=== PATIENT | male | born 1975 | race Caucasian/White ===

== ENCOUNTER 2021-02-11 22:07 | Inpatient (IN) ==
[2021-02-11] MEDS ORDERED: dexAMETHasone**PF** 10 MG/ML VIAL IV ONE (22:29)
[2021-02-11] MEDS ORDERED: ALBUT/IPRATROP 3MG/0.5MG NEB 3 ML VIAL NEB ONE (22:29)
[2021-02-11] MEDS ORDERED: SODIUM CHLORIDE 0.9% 1000ML 1,000 ML IV SCH (22:30)
--- NOTE | 2021-02-11 22:40 | Emergency Department Note ---
History of Present Illness General Chief complaint: Shortness of Breath/Dyspnea Stated complaint: HAVING A HARD TIME BREATHING,COUGHING Time Seen by Provider: 02/11/21 22:22 History of Present Illness This is a 45-year-old male presenting to the emergency department for evaluation of shortness of breath symptoms. The patient is not able to breathe and has a nonproductive dry cough. He evidently went to [place] about a week ago for a family member, and believes this is where he was exposed to COVID-19. He did not at home Covid test 5 days ago that was POSITIVE. The patient does have a history of asthma and does not follow with a primary care physician. The patient did get an albuterol inhaler which has not helped his symptoms. He rates his overall discomfort a 9/10. He is not vaccinated against COVID-19. Home Medications Medication Instructions Recorded Confirmed Type Otc Inhaler 1 puff INHALATION DIRECTED PRN 02/11/21 02/11/21 History Allergies Allergy/AdvReac Type Severity Reaction Status Date / Time Tetanus Vaccines and Toxoid AdvReac Intermediate FELT LIKE Verified 02/11/21 23:07 WIPE LASH, NECK VERY STIFF ENVIRONMENTAL Allergy Intermediate CONGESTION Uncoded 02/11/21 23:07 Past Med/Surg History Medical History (Updated 02/12/21 @ 05:37 by Migel Garcia PA-C) Asthma Surgical History (Updated 02/11/21 @ 22:37 by Migel Garcia PA-C) No significant past surgical history Social History Smoking Status: Never smoker Feels Safe at Home: Yes Review of Systems A total of 10 systems reviewed and were otherwise negative Physical Exam Vital Signs Vital Signs - 24 hr 02/11/21 22:10 02/11/21 22:12 02/11/21 22:29 Temperature 37.9 C H Temperature Source Temporal Artery Scan Pulse Rate 92 H 82 Pulse Rate [Right Radial] Respiratory Rate 20 60 H Respiratory Effort / Characteristics Non-Labored Spontaneous Respiratory Depth Normal Respiratory Pattern Regular Blood Pressure 104/68 Blood Pressure Mean 80 Pulse Oximetry 83 L 92 Oxygen Delivery Method Nasal Cannula Room Air Nasal Cannula Oxygen Flow Rate 4 4 Sepsis Recent Fever Within 48 Hours No Sepsis New/Unexplained Change in Mental Status No Sepsis Action Taken by Nursing No Action Required 02/11/21 22:31 02/11/21 22:45 02/11/21 23:00 Temperature Temperature Source Pulse Rate 91 H Pulse Rate [Right Radial] 78 Respiratory Rate 22 24 Respiratory Effort / Characteristics Spontaneous Respiratory Depth Respiratory Pattern Blood Pressure 144/77 H Blood Pressure Mean 99 Pulse Oximetry 93 97 Oxygen Delivery Method Nasal Cannula Nasal Cannula Nasal Cannula Oxygen Flow Rate 4 4 4 Sepsis Recent Fever Within 48 Hours Sepsis New/Unexplained Change in Mental Status Sepsis Action Taken by Nursing 02/11/21 23:30 02/12/21 00:00 02/12/21 00:30 Temperature Temperature Source Pulse Rate 111 H 121 H 114 H Pulse Rate [Right Radial] Respiratory Rate 20 20 21 Respiratory Effort / Characteristics Respiratory Depth Respiratory Pattern Blood Pressure 135/68 131/64 128/68 Blood Pressure Mean 90 86 88 Pulse Oximetry 97 95 95 Oxygen Delivery Method Nasal Cannula Nasal Cannula Nasal Cannula Oxygen Flow Rate 4 4 4 Sepsis Recent Fever Within 48 Hours Sepsis New/Unexplained Change in Mental Status Sepsis Action Taken by Nursing 02/12/21 00:46 02/12/21 01:30 EST 02/12/21 02:00 Temperature Temperature Source Pulse Rate 110 H 88 90 Pulse Rate [Right Radial] Respiratory Rate 21 23 20 Respiratory Effort / Characteristics Respiratory Depth Respiratory Pattern Blood Pressure 127/70 114/58 L 114/54 L Blood Pressure Mean 89 76 74 Pulse Oximetry 93 95 92 Oxygen Delivery Method Nasal Cannula Nasal Cannula Nasal Cannula Oxygen Flow Rate 4 4 4 Sepsis Recent Fever Within 48 Hours Sepsis New/Unexplained Change in Mental Status Sepsis Action Taken by Nursing VITALS: Vitals are noted on the nurse's note and reviewed by myself. Vital signs with hypoxia consistent with his O2 saturation of 83%. GENERAL: Well-developed, well-nourished, white male who appears in moderate respiratory distress. He is answering questions in short sentences. HEAD: Normocephalic atraumatic. HEART: Regular rate and rhythm without murmurs gallops or rubs. LUNGS: Coarse breath sounds throughout with scattered wheezing and rhonchi ABDOMEN: Positive normal bowel sounds x 4. Soft, nontender, without masses or organomegaly. No guarding or rebound tenderness. MUSCULOSKELETAL: No muscle atrophy, erythema, or edema noted. Full range of motion in all extremities. NEURO: Patient was alert and oriented to person place and time. CN II through XII grossly intact. Course Administered Medications Discontinued Medications Acetaminophen (Acetaminophen 325 Mg Tab) 650 mg PO NOW STA Stop: 02/12/21 01:20 EST Last Admin: 02/12/21 01:39 EST Dose: 650 mg Documented by: [id number] Albuterol (Albut/Ipratrop 3mg/0.5mg Neb 3 Ml Vial) 12 ml NEB ONE ONE Stop: 02/11/21 22:30 Last Admin: 02/11/21 22:44 Dose: 12 ml Documented by: [id number] Dexamethasone Sodium Phosphate (DexamethasonePf 10 Mg/Ml Vial) 10 mg IV NOW ONE Stop: 02/11/21 22:30 Last Admin: 02/11/21 22:41 Dose: 10 mg Documented by: [id number] Sodium Chloride (Nss 1000ml) 1,000 mls @ 999 mls/hr IV .Q1H1M ZACH Stop: 02/11/21 23:30 Last Infusion: 02/12/21 00:49 Dose: 0 mls/hr Documented by: [id number] Admin: 02/11/21 22:40 Dose: 999 mls/hr Documented by: [id number] Magnesium Sulfate/Dextrose (Magnesium Sulfate / D5w) 1 gm in 100 mls @ 50 mls/hr IV ONE ONE Stop: 02/12/21 03:24 Last Infusion: 02/12/21 02:55 Dose: 0 mls/hr Documented by: [id number] Admin: 02/12/21 01:41 EST Dose: 50 mls/hr Documented by: [id number] Remdesivir 200 mg/ Sodium (Chloride) 250 mls @ 125 mls/hr IV NOW STA; Protocol Stop: 02/12/21 04:44 Last Admin: 02/12/21 03:25 Dose: 125 mls/hr Documented by: [id number] Ioversol (Optiray 320 125ml) 120 ml IV ONCE ONE Stop: 02/12/21 00:49 Last Admin: 02/12/21 00:49 Dose: 120 ml Documented by: [id number] Potassium Chloride (Potassium Chloride Crtab 20 Meq Tabcr) 40 meq PO NOW STA Stop: 02/12/21 01:21 EST Last Admin: 02/12/21 01:39 EST Dose: 40 meq Documented by: [id number] Medical Decision Making Differential Diagnosis Differential diagnosis includes, but is not limited to: COVID-19, myocardial infarction, dysrhythmia, pericarditis, pneumothorax, aortic aneurysm/dissection, DVT/PE, anxiety, GERD, PUD, electrolyte imbalance, thyroid disorder, pneumonia, bronchitis, pancreatitis, and others Laboratory Data Result diagrams: 02/11/21 22:39 02/11/21 22:39 Lab Results 02/11/21 02/11/21 02/11/21 Range/Units 22:39 22:39 22:39 WBC 8.06 (4.8-10.8) K/uL RBC 5.15 (4.7-6.1) M/uL Hgb 15.3 (14.0-18.0) g/dL Hct 44.9 (42-52) % MCV 87.2 (80-100) fL MCH 29.7 (25-34) pg MCHC 34.1 (32-36) g/dL RDW Std Deviation 41.5 (36.4-46.3) fL RDW Coeff of Topher 13.0 (11.5-14.5) % Plt Count 332 (130-400) K/uL MPV 9.0 (7.4-10.4) fL Immature Gran % (Auto) 1.0 % Neut % (Auto) 78.8 % Lymph % (Auto) 9.8 % [place] % (Auto) 10.2 % Eos % (Auto) 0.1 % Baso % (Auto) 0.1 % Neut # (Auto) 6.35 (1.4-6.5) K/uL Lymph # (Auto) 0.79 L (1.2-3.4) K/uL [place] # (Auto) 0.82 H (0.11-0.59) K/uL Eos # (Auto) 0.01 (0-0.5) K/uL Baso # (Auto) 0.01 (0-0.2) K/uL Immature Gran # (Auto) 0.08 H (0.00-0.02) K/uL VBG pH (7.36-7.41) VBG pCO2 (38-50) mmHg VBG pO2 mmHg VBG HCO3 mmol/L VBG O2 Saturation % VBG Base Excess mEq/L Barometric Pressure mm/Hg Sodium 135 L (136-145) mmol/L Potassium 3.5 (3.5-5.1) mmol/L Chloride 97 L (98-107) mmol/L Carbon Dioxide 29 (21-32) mmol/L Anion Gap 9.0 (3-11) BUN 13 (7-18) mg/dl Creatinine 0.96 (0.6-1.4) mg/dl Est Cr Clr Drug Dosing 93.0 ml/min Est GFR ( Amer) 109.4 ml/min Est GFR (Non-Af Amer) 94.4 ml/min BUN/Creatinine Ratio 13.7 (10-20) Glucose 134 H (70-99) mg/dl Lactate (0.4-2.0) mmol/L Calcium 8.7 (8.5-10.1) mg/dl Magnesium 2.7 H (1.8-2.4) mg/dl Total Bilirubin 0.6 (0.2-1) mg/dl AST 59 H (15-37) U/L ALT 81 H (12-78) U/L Alkaline Phosphatase 70 (45-117) U/L Troponin I < 0.015 (0-0.045) ng/ml Total Protein 7.6 (6.4-8.2) gm/dl Albumin 2.7 L (3.4-5.0) gm/dl Globulin 4.9 H (2.5-4.0) gm/dl Albumin/Globulin Ratio 0.6 L (0.9-2) Procalcitonin 0.05 (0-0.5) ng/ml COVID-19 Eval Order SARS-CoV-2 (PCR) (Negative) 02/11/21 02/11/21 02/11/21 Range/Units 22:46 22:46 22:46 WBC (4.8-10.8) K/uL RBC (4.7-6.1) M/uL Hgb (14.0-18.0) g/dL Hct (42-52) % MCV (80-100) fL MCH (25-34) pg MCHC (32-36) g/dL RDW Std Deviation (36.4-46.3) fL RDW Coeff of Topher (11.5-14.5) % Plt Count (130-400) K/uL MPV (7.4-10.4) fL Immature Gran % (Auto) % Neut % (Auto) % Lymph % (Auto) % [place] % (Auto) % Eos % (Auto) % Baso % (Auto) % Neut # (Auto) (1.4-6.5) K/uL Lymph # (Auto) (1.2-3.4) K/uL [place] # (Auto) (0.11-0.59) K/uL Eos # (Auto) (0-0.5) K/uL Baso # (Auto) (0-0.2) K/uL Immature Gran # (Auto) (0.00-0.02) K/uL VBG pH (7.36-7.41) VBG pCO2 (38-50) mmHg VBG pO2 mmHg VBG HCO3 mmol/L VBG O2 Saturation % VBG Base Excess mEq/L Barometric Pressure mm/Hg Sodium (136-145) mmol/L Potassium (3.5-5.1) mmol/L Chloride (98-107) mmol/L Carbon Dioxide (21-32) mmol/L Anion Gap (3-11) BUN (7-18) mg/dl Creatinine (0.6-1.4) mg/dl Est Cr Clr Drug Dosing ml/min Est GFR ( Amer) ml/min Est GFR (Non-Af Amer) ml/min BUN/Creatinine Ratio (10-20) Glucose (70-99) mg/dl Lactate 1.1 (0.4-2.0) mmol/L Calcium (8.5-10.1) mg/dl Magnesium (1.8-2.4) mg/dl Total Bilirubin (0.2-1) mg/dl AST (15-37) U/L ALT (12-78) U/L Alkaline Phosphatase (45-117) U/L Troponin I (0-0.045) ng/ml Total Protein (6.4-8.2) gm/dl Albumin (3.4-5.0) gm/dl Globulin (2.5-4.0) gm/dl Albumin/Globulin Ratio (0.9-2) Procalcitonin (0-0.5) ng/ml COVID-19 Eval Order Covid19 at [facility] SARS-CoV-2 (PCR) POSITIVE A* (Negative) 02/11/21 Range/Units 22:58 WBC (4.8-10.8) K/uL RBC (4.7-6.1) M/uL Hgb (14.0-18.0) g/dL Hct (42-52) % MCV (80-100) fL MCH (25-34) pg MCHC (32-36) g/dL RDW Std Deviation (36.4-46.3) fL RDW Coeff of Topher (11.5-14.5) % Plt Count (130-400) K/uL MPV (7.4-10.4) fL Immature Gran % (Auto) % Neut % (Auto) % Lymph % (Auto) % [place] % (Auto) % Eos % (Auto) % Baso % (Auto) % Neut # (Auto) (1.4-6.5) K/uL Lymph # (Auto) (1.2-3.4) K/uL [place] # (Auto) (0.11-0.59) K/uL Eos # (Auto) (0-0.5) K/uL Baso # (Auto) (0-0.2) K/uL Immature Gran # (Auto) (0.00-0.02) K/uL VBG pH 7.42 H (7.36-7.41) VBG pCO2 52 H (38-50) mmHg VBG pO2 21 mmHg VBG HCO3 33 mmol/L VBG O2 Saturation < 60.0 % VBG Base Excess 6.6 mEq/L Barometric Pressure 738.2 mm/Hg Sodium (136-145) mmol/L Potassium (3.5-5.1) mmol/L Chloride (98-107) mmol/L Carbon Dioxide (21-32) mmol/L Anion Gap (3-11) BUN (7-18) mg/dl Creatinine (0.6-1.4) mg/dl Est Cr Clr Drug Dosing ml/min Est GFR ( Amer) ml/min Est GFR (Non-Af Amer) ml/min BUN/Creatinine Ratio (10-20) Glucose (70-99) mg/dl Lactate (0.4-2.0) mmol/L Calcium (8.5-10.1) mg/dl Magnesium (1.8-2.4) mg/dl Total Bilirubin (0.2-1) mg/dl AST (15-37) U/L ALT (12-78) U/L Alkaline Phosphatase (45-117) U/L Troponin I (0-0.045) ng/ml Total Protein (6.4-8.2) gm/dl Albumin (3.4-5.0) gm/dl Globulin (2.5-4.0) gm/dl Albumin/Globulin Ratio (0.9-2) Procalcitonin (0-0.5) ng/ml COVID-19 Eval Order SARS-CoV-2 (PCR) (Negative) Imaging Data Radiologist's Impression: Preliminary Findings Only See Final Report For Complete Findings CTA CHEST: Bilateral multifocal peripheral airspace opacities most likely from an atypical respiratory infection and compatible with COVID-19. No evidence of an acute pulmonary embolus. Radiologist:Anthony Betancourt, ANNAhone:[phone] [facility] Narrative Physical exam and history were performed. Nursing notes, EMR, and Medication List were personally reviewed. Patient appears to have respiratory distress likely from COVID-19. The patient refuses to wear his mask. He was seen immediately upon arrival to the room as his presenting vital signs are quite concerning. IV access was established and labs were obtained. Blood cultures were gathered. He was sent to CT scan to rule out possible pulmonary emboli related to COVID-19. He was given a 1 hour DuoNeb and IV Decadron. The case was discussed with my attending. His O2 saturation did improve to 92% on 4 L nasal cannula. An order was placed for continuous cardiac monitoring. The monitor shows a rate of 90 with normal sinus rhythm. The patient's blood work is as above and was reviewed. He does not have a significantly elevated white blood cell count, gross anemia, bandemia, or significant electrolyte imbalance. Transaminases are not diagnostic. Troponin x1 is negative. Procalcitonin is normal. Lactic acid is normal with blood cultures pending. CT scan was performed and reviewed by myself and radiology. CT scan is consistent with multifocal pneumonia, likely from COVID-19. Overall the patient does not appear well for discharge home. The case was discussed with the on-call hospitalist, who agreed to evaluate the patient here in the ER. Please see their dictation for further patient course, plan, and disposition. The chart was completed utilizing [employer] Voice Recognition Software. Grammatical errors, random word insertions, pronoun errors, and incomplete sentences are an occasional consequence of this system due to software limitations, ambient noise, and hardware issues. Any formal questions or concerns about the content, text, or information contained within the body of this dictation should be directly addressed to the provider for clarification. . Impression & Plan Pneumonia due to 2019-nCoV, COVID-19, Dyspnea due to COVID-19 Discharge Plan Visit Data Chief Complaint: Shortness of Breath/Dyspnea Stated Complaint: HAVING A HARD TIME BREATHING,COUGHING ED Provider: Zaki Esparza ED Midlevel Provider: Migel Garcia Discharge Problem: Pneumonia due to 2019-nCoV, COVID-19, Dyspnea due to COVID-19 Discharge Instructions Interventions: ED Discharge Assessment Last Done: 02/12/21 05:07
[2021-02-11 22:59] LABS: Hematocrit (blood only) 44.9 % (42-52); Hemoglobin 15.3 g/dL (14.0-18.0); Mean Corpuscular Hemoglobin 29.7 pg (25-34); Mean Corpuscular Hgb Conc 34.1 g/dL (32-36); Mean Corpuscular Volume 87.2 fL (80-100); Platelet Count 332 K/uL (130-400); RDW Standard Deviation 41.5 fL (36.4-46.3); Red Blood Count 5.15 M/uL (4.7-6.1); White Blood Count 8.06 K/uL (4.8-10.8)
[2021-02-11 23:09] LABS: Base Excess VBG 6.6 mEq/L; HCO3 VBG 33 mmol/L; Oxygen Saturation VBG < 60.0 %; PCO2 VBG 52 mmHg (38-50); PO2 VBG 21 mmHg; pH VBG 7.42 (7.36-7.41)
[2021-02-11 23:20] LABS: Alanine Aminotransferase 81 U/L (12-78); Albumin Level 2.7 gm/dl (3.4-5.0); Aspartate Aminotransferase 59 U/L (15-37); BUN Creatinine Ratio 13.7 (10-20); Blood Urea Nitrogen 13 mg/dl (7-18); Calcium 8.7 mg/dl (8.5-10.1); Carbon Dioxide 29 mmol/L (21-32); Chloride 97 mmol/L (98-107); Est GFR (African American) 109.4 ml/min; Est GFR (Non-African American) 94.4 ml/min; Glucose 134 mg/dl (70-99); Potassium 3.5 mmol/L (3.5-5.1); Sodium 135 mmol/L (136-145)
[2021-02-11 23:25] LABS: Albumin Globulin Ratio 0.6 (0.9-2); Alkaline Phosphatase 70 U/L (45-117); Bilirubin,Total 0.6 mg/dl (0.2-1); Globulin 4.9 gm/dl (2.5-4.0); Total Protein 7.6 gm/dl (6.4-8.2); Troponin I < 0.015 ng/ml (0-0.045)
[2021-02-12 00:03] LABS: Basophils # (auto) 0.01 K/uL (0-0.2); Basophils % (auto) 0.1 %; Eosinophils # (auto) 0.01 K/uL (0-0.5); Eosinophils % (auto) 0.1 %; Immature Granulocytes # (auto) 0.08 K/uL (0.00-0.02); Lymphocytes # (auto) 0.79 K/uL (1.2-3.4); Lymphocytes % (auto) 9.8 %; Monocytes # (auto) 0.82 K/uL (0.11-0.59); Monocytes % (auto) 10.2 %; Neutrophils # (auto) 6.35 K/uL (1.4-6.5); Neutrophils % (auto) 78.8 %
[2021-02-12] MEDS ORDERED: OPTIRAY 320 125ml IV ONE (00:48)
[2021-02-12] MEDS ORDERED: ACETAMINOPHEN 325 MG TAB PO STA (01:19)
[2021-02-12] MEDS ORDERED: POTASSIUM CHLORIDE CRTAB 20 MEQ TABCR PO STA (01:20)
[2021-02-12] MEDS ORDERED: MAGNESIUM SULFATE / D5W 1 GM/100 ML BAG IV ONE (01:25)
[2021-02-12 01:59] LABS: Magnesium 2.7 mg/dl (1.8-2.4)
--- NOTE | 2021-02-12 02:40 | History & Physical Report ---
Date of Service February 12, 2021 Assessment & Plan (1) Acute hypoxemic respiratory failure: Plan: Secondary to severe COVID-19 pneumonia Abnormal LFTs without abdominal pain complaints Hyperglycemia rule out DM Medical telemetry Supplemental O2 Decadron and Remdesivir for severe COVID-19 pneumonia. Patient agreeable to trying first dose of Remdesivir. (Patient was counseled regarding potential adverse effects from Remdesivir therapy and provided with patient education sheet.) Pulmonary consult if without improvement. Follow LFTs, liver ultrasound if with progression Check hemoglobin A1c DVT prophylaxis per Lovenox subcu Full code Text document was generated using [employer] voice recognition software. It may contain grammatical or spelling errors. Kindly contact undersigned for clarification of any documentation item in question. History of Present Illness Chief Complaint: Shortness of breath, COVID-19 positive Primary Care Provider: NO PCP History obtained from patient and records. Medical history significant for bronchial asthma as per records. Last confinement 2009 under ENT service for left neck abscess status post drainage. Few days history of dry cough, worsening shortness of breath symptoms without chest pain. Symptoms different from asthma attack as per patient. Patient denies abdominal pain. Poor appetite at home. 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 Patient has not received COVID-19 vaccination. O2 sats upon arrival at the ER 80s on room air. Decadron, neb treatment given at the ER. Medical History as above Surgical History : Neck abscess drainage, hernia repair Family History : Asthma Personal/Social history : Non-smoker, occasional EtOH intake (last drink was 2 weeks ago as per patient), [employer] work Allergies Allergy/AdvReac Type Severity Reaction Status Date / Time Tetanus Vaccines and Toxoid AdvReac Intermediate FELT LIKE Verified 02/11/21 23:07 WIPE LASH, NECK VERY STIFF house dust AdvReac Mild Congested Verified 02/12/21 07:16 pollen extracts AdvReac Mild Congested Verified 02/12/21 07:16 Home Medications Medication Instructions Recorded Confirmed Type Devi Allergy 1 cap PO DAILY 02/11/21 02/12/21 History Ventolin PRN 02/12/21 History Past Med/Surg History Medical History (Updated 02/12/21 @ 07:16 by Luis Antonio Darnell MD) Asthma Surgical History (Updated 02/11/21 @ 22:37 by Migel Garcia PA-C) No significant past surgical history Social History Smoking Status: Never smoker Hx Alcohol Use: Yes Alcohol type: wine and hard liquor Hx Substance Use: No Preferred Language: Sudanese Cook Pickled Meat Required: No Beliefs That Will Affect Care: None Current Living Situation: Spouse and Family Current Living Situation Comment: and 1 child Other Information That Helps Us Care for You: No Feels Safe at Home: Yes Safety Concerns: Feels Safe At This Time Assistive Devices: Denture - Upper and Denture - Lower Review of Systems Review of Systems: As per HPI, all 10 systems reviewed, all other ROS negative Physical Exam Physical Exam: GENERAL: Comfortable, no respiratory distress SKIN: Normal color, warm HEENT: [place] palpebral conjunctivae, no ptosis, dry buccal mucosa, nasal cannula in place NECK : Supple, no tenderness CHEST : Decreased breath sounds, no tenderness HEART : RRR, no obvious murmurs ABDOMEN: Some distention, nontender EXTREMITIES : No LE swelling/tenderness, no other conspicuous deformities noted NEUROLOGIC : Coherent, no facial asymmetry, no other gross focality Results & Data Results & Data ([facility]) Vital Signs (Past 12 Hours) Vital Signs Temp Pulse Pulse Resp BP Pulse Ox 02/12/21 02:00 90 20 114/54 L 92 02/12/21 01:30 EST 88 23 114/58 L 95 02/12/21 00:46 110 H 21 127/70 93 02/12/21 00:30 114 H 21 128/68 95 02/12/21 00:00 121 H 20 131/64 95 02/11/21 23:30 111 H 20 135/68 97 02/11/21 23:00 91 H 24 144/77 H 97 02/11/21 22:45 78 22 93 02/11/21 22:29 82 60 H 92 02/11/21 22:12 37.9 C H 92 H 20 104/68 83 L Laboratory Results Laboratory Results WBC 8.06 K/uL (4.8-10.8) 02/11/21 22:39 RBC 5.15 M/uL (4.7-6.1) 02/11/21 22:39 Hgb 15.3 g/dL (14.0-18.0) 02/11/21 22:39 Hct 44.9 % (42-52) 02/11/21 22:39 MCV 87.2 fL (80-100) 02/11/21 22:39 MCH 29.7 pg (25-34) 02/11/21 22:39 MCHC 34.1 g/dL (32-36) 02/11/21 22:39 RDW Std Deviation 41.5 fL (36.4-46.3) 02/11/21 22:39 RDW Coeff of Topher 13.0 % (11.5-14.5) 02/11/21 22:39 Plt Count 332 K/uL (130-400) 02/11/21 22:39 MPV 9.0 fL (7.4-10.4) 02/11/21 22:39 Immature Gran % (Auto) 1.0 % 02/11/21 22:39 Neut % (Auto) 78.8 % 02/11/21 22:39 Lymph % (Auto) 9.8 % 02/11/21 22:39 [place] % (Auto) 10.2 % 02/11/21 22:39 Eos % (Auto) 0.1 % 02/11/21 22:39 Baso % (Auto) 0.1 % 02/11/21 22:39 Neut # (Auto) 6.35 K/uL (1.4-6.5) 02/11/21 22:39 Lymph # (Auto) 0.79 K/uL (1.2-3.4) L 02/11/21 22:39 [place] # (Auto) 0.82 K/uL (0.11-0.59) H 02/11/21 22:39 Eos # (Auto) 0.01 K/uL (0-0.5) 02/11/21 22:39 Baso # (Auto) 0.01 K/uL (0-0.2) 02/11/21 22:39 Immature Gran # (Auto) 0.08 K/uL (0.00-0.02) H 02/11/21 22:39 VBG pH 7.42 (7.36-7.41) H 02/11/21 22:58 VBG pCO2 52 mmHg (38-50) H 02/11/21 22:58 VBG pO2 21 mmHg 02/11/21 22:58 VBG HCO3 33 mmol/L 02/11/21 22:58 VBG O2 Saturation < 60.0 % 02/11/21 22:58 VBG Base Excess 6.6 mEq/L 02/11/21 22:58 Barometric Pressure 738.2 mm/Hg 02/11/21 22:58 Sodium 135 mmol/L (136-145) L 02/11/21 22:39 Potassium 3.5 mmol/L (3.5-5.1) 02/11/21 22:39 Chloride 97 mmol/L (98-107) L 02/11/21 22:39 Carbon Dioxide 29 mmol/L (21-32) 02/11/21 22:39 Anion Gap 9.0 (3-11) 02/11/21 22:39 BUN 13 mg/dl (7-18) 02/11/21 22:39 Creatinine 0.96 mg/dl (0.6-1.4) 02/11/21 22:39 Est Cr Clr Drug Dosing 93.0 ml/min 02/11/21 22:39 Est GFR ( Amer) 109.4 ml/min 02/11/21 22:39 Est GFR (Non-Af Amer) 94.4 ml/min 02/11/21 22:39 BUN/Creatinine Ratio 13.7 (10-20) 02/11/21 22:39 Glucose 134 mg/dl (70-99) H 02/11/21 22:39 Lactate 1.1 mmol/L (0.4-2.0) 02/11/21 22:46 Calcium 8.7 mg/dl (8.5-10.1) 02/11/21 22:39 Magnesium 2.7 mg/dl (1.8-2.4) H 02/11/21 22:39 Total Bilirubin 0.6 mg/dl (0.2-1) 02/11/21 22:39 AST 59 U/L (15-37) H 02/11/21 22:39 ALT 81 U/L (12-78) H 02/11/21 22:39 Alkaline Phosphatase 70 U/L (45-117) 02/11/21 22:39 Troponin I < 0.015 ng/ml (0-0.045) 02/11/21 22:39 Total Protein 7.6 gm/dl (6.4-8.2) 02/11/21 22:39 Albumin 2.7 gm/dl (3.4-5.0) L 02/11/21 22:39 Globulin 4.9 gm/dl (2.5-4.0) H 02/11/21 22:39 Albumin/Globulin Ratio 0.6 (0.9-2) L 02/11/21 22:39 Procalcitonin 0.05 ng/ml (0-0.5) 02/11/21 22:39 COVID-19 Eval Order Covid19 at [facility] 02/11/21 22:46 SARS-CoV-2 (PCR) POSITIVE (Negative) A* 02/11/21 22:[address] chest initial read: Bilateral multifocal peripheral airspace opacities most likelyfroman atypical respiratoryinfection and compatible with COVID-19. No evidence of an acute pulmonaryembolus. EKG as per my interpretation rate 85, NSR, normal axis, no ischemia
[2021-02-12] MEDS ORDERED: SODIUM CHLORIDE 0.9% 10ML FLUSH IV SCH (02:45)
[2021-02-12] MEDS ORDERED: REMDESIVIR 200 MG in SODIUM CHLORIDE 0.9% 210 ML IV STA (02:45)
[2021-02-12] MEDS ORDERED: ACETAMINOPHEN 325 MG TAB PO PRN ×2 (05:30)
[2021-02-12] MEDS ORDERED: PROMETHAZINE HCL 12.5 MG in SODIUM CHLORIDE 0.9% 50 ML IV PRN (05:30)
[2021-02-12] MEDS ORDERED: LEVALBUTEROL TARTRATE 15 GM HFA.AER.AD INH PRN (05:30)
[2021-02-12 07:21] LABS: Hematocrit (blood only) 41.9 % (42-52); Mean Corpuscular Hemoglobin 29.2 pg (25-34); Mean Corpuscular Hgb Conc 33.4 g/dL (32-36); Mean Corpuscular Volume 87.5 fL (80-100); Platelet Count 339 K/uL (130-400); RDW Standard Deviation 41.8 fL (36.4-46.3); Red Blood Count 4.79 M/uL (4.7-6.1); White Blood Count 6.25 K/uL (4.8-10.8)
--- NOTE | 2021-02-12 07:41 | CT Scan Report ---
CT angio chest PE protocol CT DOSE: 279.60 mGy.cm HISTORY: 45 years-old Male with +Covid. SOB.. Acute shortness of breath. COVID Positive. TECHNIQUE: Multiple CTA images of the chest were obtained after the intravenous administration of 120 ml Optiray. Coronal and sagittal MIPS were obtained from the axial data set and were submitted for review. All measurements were obtained according to NASCET criteria. A dose lowering technique was u tilized adhering to the principles of ALARA. COMPARISON: Chest radiographs 07/05/2009 FINDINGS: CTA: The heart is normal in size. No pericardial effusion. No thoracic aortic aneurysm. Patent great vesse ls. Unremarkable pulmonary artery without pulmonary emboli. CT CHEST: Unremarkable thyroid. Mild mediastinal and hilar adenopathy with lymph nodes measuring up to 10 mm. T race pleural effusions. No pneumothorax. Moderate subpleural predominant groundglass and consolidativ e opacities are present within the multilobar multi segmental distribution. Dependent predominant bib asilar consolidation suggests atelectasis. No overt pulmonary edema. The central airways are patent. Mild wall thickening of the distal esophagus. Unremarkable soft tissues. No acute fracture. IMPRESSION: 1. No pulmonary emboli. 2. Moderate subpleural predominant groundglass and consolidative opacities compatible with viral pneu monia. 3. Mild reactive mediastinal and hilar adenopathy. 4. Trace pleural effusions. ACT 112: Negative or not required by law. The above report was generated using voice recognition software. It may contain grammatical, syntax o r spelling errors. Electronically signed by: Yayo Jordan M.D. 02/12/2021 7:40 AM
[2021-02-12 07:44] LABS: Basophils # (auto) 0.01 K/uL (0-0.2); Basophils % (auto) 0.2 %; Immature Granulocytes # (auto) 0.06 K/uL (0.00-0.02); Lymphocytes # (auto) 0.31 K/uL (1.2-3.4); Monocytes # (auto) 0.49 K/uL (0.11-0.59); Monocytes % (auto) 7.8 %; Neutrophils # (auto) 5.38 K/uL (1.4-6.5)
[2021-02-12 07:54] LABS: Albumin Globulin Ratio 0.5 (0.9-2); Albumin Level 2.3 gm/dl (3.4-5.0); BUN Creatinine Ratio 14.6 (10-20); Bilirubin,Total 0.4 mg/dl (0.2-1); Calcium 8.5 mg/dl (8.5-10.1); Creatinine Clr Calc Pharmacy 108.9 ml/min; Est GFR (African American) 122.9 ml/min; Globulin 4.3 gm/dl (2.5-4.0); Potassium 4.7 mmol/L (3.5-5.1); Total Protein 6.6 gm/dl (6.4-8.2)
[2021-02-12] MEDS ORDERED: PNEUMOCOCCAL POLYSACCHARIDES 25 MCG/0.5 ML VIAL/SYR IM ONE (08:00)
[2021-02-12] MEDS: ENOXAPARIN INJ 40 MG/0.4 ML SYR SQ SCH (08:46)
[2021-02-12] MEDS: dexAMETHasone 6 MG in SYRINGE 0 ML IV SCH (08:46)
[2021-02-12] MEDS: guaiFENesin 600 MG TABCR PO SCH ×2 (10:40→21:51)
--- NOTE | 2021-02-12 11:17 | Electrocardiogram Report ---
Test Reason : Blood Pressure : / mmHG Vent. Rate : 083 BPM Atrial Rate : 083 BPM P-R Int : 152 ms QRS Dur : 074 ms QT Int : 374 ms P-R-T Axes : 048 -17 026 degrees QTc Int : 439 ms Normal sinus rhythm Normal ECG No previous ECGs available Confirmed by Charli Chance ([id number]) on 02/12/2021 11:17:08 AM Referred By: REFERRED SELF Confirmed By:Charli Chance
--- NOTE | 2021-02-12 13:15 | Hospitalist Progress Note ---
Date of Service February 12, 2021 Assessment & Plan (1) Pneumonia due to 2019-nCoV: (2) Acute hypoxemic respiratory failure: Plan: 45-year-old gentleman with past medical history of asthma and allergy presented to our ED 02/11 with complaint of few days worsening of dry cough associated with worsening shortness of breath but no chest pain. Patient reports the symptoms different from his prior asthma attack. Patient found to be Covid positive in the ED. Patient not vaccinated. 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 Is being managed for the following #. Acute hypoxic respiratory failure #. 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 Continue with dexamethasone 01/12. Supplemental oxygen, wean as tolerated. #. History of asthma #. History of allergy Stable, as needed albuterol, home Devi. #. DVT prophylaxis Enoxaparin subcutaneous Full code Admission and Anticipated Discharge Date Admission Date: February 12, 2021 Subjective Patient was sitting up in bed, watching television, on 3 L nasal cannula oxygen, NAD. Patient denies any acute events overnight. Patient is eating and moving bowels okay. Patient denies any headache/dizziness/chest pain/palpitations/other review of symptoms. We will order a flutter valve and incentive spirometry for the patient. Patient advised and encouraged to use them and also prone as able. Physical Exam Physical Exam: GENERAL: Alert and oriented x3. NAD, on 3L. HEENT: No pallor, no icterus. Pupils equal, round and reactive to light. Oral mucosa moist. NECK: No JVD, no neck masses. HEART: S1 and S2 heard. Regular rate and rhythm. No murmur, no gallop. RESPIRATORY SYSTEM: Normal AP diameter. No accessory muscle use. No wheezing, no crackles. Decreased Breath sound ABDOMEN: Soft, bowel sounds present, nontender, no distention. CENTRAL NERVOUS SYSTEM: No facial droop. Speech is clear. Obeys simple commands. Moves extremities. EXTREMITIES: No edema, no erythema seen. Results & Data Results & Data ([facility]) Vital Signs (Past 12 Hours) Vital Signs Temp Pulse Pulse Resp BP BP Pulse Ox 02/12/21 10:45 36.8 C 61 18 95 02/12/21 08:00 36.7 C 65 18 109/75 97 02/12/21 07:00 64 02/12/21 06:03 73 02/12/21 05:35 36.8 C 68 18 116/74 95 02/12/21 04:30 62 24 123/60 93 02/12/21 03:30 67 20 106/57 L 92 02/12/21 03:00 69 22 120/74 94 02/12/21 02:00 90 20 114/54 L 92 02/12/21 01:30 EST 88 23 114/58 L 95
[2021-02-12] MEDS: FEXOFENADINE HCL 180 MG TAB PO SCH (16:11)
[2021-02-12] MEDS ORDERED: Nursing to Pharmacy Communication SCH (19:15)
[2021-02-13] MEDS ORDERED: CALCIUM CARBONATE 500 MG CHEWABLE TAB PO STA (03:42)
[2021-02-13 07:15] LABS: Estimated Average Glucose 140 mg/dl; Hemoglobin A1C 6.5 % (4.5-5.6)
[2021-02-13 08:37] LABS: BUN Creatinine Ratio 21.4 (10-20); Calcium 8.6 mg/dl (8.5-10.1); Creatinine Clr Calc Pharmacy 106.3 ml/min; Est GFR (African American) 121.7 ml/min; Magnesium 2.6 mg/dl (1.8-2.4); Potassium 4.6 mmol/L (3.5-5.1)
[2021-02-13 08:38] LABS: Phosphorus 3.4 mg/dl (2.5-4.9)
[2021-02-13] MEDS: dexAMETHasone 6 MG in SYRINGE 0 ML IV SCH (09:02)
[2021-02-13] MEDS: ENOXAPARIN INJ 40 MG/0.4 ML SYR SQ SCH (09:08)
[2021-02-13] MEDS: guaiFENesin 600 MG TABCR PO SCH ×2 (09:09→20:36)
[2021-02-13] MEDS: FEXOFENADINE HCL 180 MG TAB PO SCH (09:10)
[2021-02-13] MEDS ORDERED: PANTOprazole 40 MG TAB PO SCH (09:15)
[2021-02-13] MEDS ORDERED: CALCIUM CARBONATE 500 MG CHEWABLE TAB PO PRN (11:08)
--- NOTE | 2021-02-13 11:31 | Hospitalist Progress Note ---
Date of Service February 13, 2021 Assessment & Plan (1) Pneumonia due to 2019-nCoV: (2) Acute hypoxemic respiratory failure: Plan: 45-year-old gentleman with past medical history of asthma and allergy presented to our ED 02/11 with complaint of few days worsening of dry cough associated with worsening shortness of breath but no chest pain. Patient reports the symptoms different from his prior asthma attack. Patient found to be Covid positive in the ED. Patient not vaccinated. 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 Is being managed for the following #. Acute hypoxic respiratory failure #. 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 Continue with dexamethasone 01/12. Supplemental oxygen, wean as tolerated. #. Heartburn Likely indigestion secondary to steroid We will put him on PPI for the duration of steroid Tums as needed, patient reports symptoms improvement with Tums. #. History of asthma #. History of allergy Stable, as needed albuterol, home Devi. #. DVT prophylaxis Enoxaparin subcutaneous Full code Admission and Anticipated Discharge Date Admission Date: February 12, 2021 Subjective Patient was lying in bed on his side, worsening television, on 3 L nasal cannula oxygen, NAD. Patient denies any acute events overnight other than reflux symptoms he had. We will put him on pantoprazole for the duration of dexamethasone. Tums as needed. Patient is eating and moving bowels okay. Patient denies any headache/dizziness/chest pain/palpitations/other review of symptoms. Incentive spirometry not seen at the bedside, will make nursing staff aware. Patient advised to do incentive spirometry and flutter valve every hour when awake; prone position as able. Physical Exam Physical Exam: GENERAL: Alert and oriented x3. NAD, on 3L. HEENT: No pallor, no icterus. Pupils equal, round and reactive to light. Oral mucosa moist. NECK: No JVD, no neck masses. HEART: S1 and S2 heard. Regular rate and rhythm. No murmur, no gallop. RESPIRATORY SYSTEM: Normal AP diameter. No accessory muscle use. No wheezing, no crackles. Decreased Breath sound ABDOMEN: Soft, bowel sounds present, nontender, no distention. CENTRAL NERVOUS SYSTEM: No facial droop. Speech is clear. Obeys simple commands. Moves extremities. EXTREMITIES: No edema, no erythema seen. Results & Data Results & Data ([facility]) Vital Signs (Past 12 Hours) Vital Signs Temp Pulse Pulse Resp BP Pulse Ox 02/13/21 08:11 36.9 C 58 L 18 107/68 92 02/13/21 04:37 52 L 02/13/21 03:20 36.8 C 51 L 19 131/71 96
[2021-02-13] MEDS: PANTOprazole 40 MG TAB PO SCH (20:36)
[2021-02-14] MEDS: guaiFENesin 600 MG TABCR PO SCH ×2 (08:21→22:15)
[2021-02-14] MEDS: FEXOFENADINE HCL 180 MG TAB PO SCH (08:21)
[2021-02-14] MEDS: PANTOprazole 40 MG TAB PO SCH ×2 (08:22→22:15)
[2021-02-14] MEDS: dexAMETHasone 6 MG in SYRINGE 0 ML IV SCH (08:22)
[2021-02-14] MEDS: ENOXAPARIN INJ 40 MG/0.4 ML SYR SQ SCH (08:22)
--- NOTE | 2021-02-14 14:44 | Hospitalist Progress Note ---
Date of Service February 14, 2021 Assessment & Plan (1) Pneumonia due to 2019-nCoV: (2) Acute hypoxemic respiratory failure: Plan: 45-year-old gentleman with past medical history of asthma and allergy presented to our ED 02/11 with complaint of few days worsening of dry cough associated with worsening shortness of breath but no chest pain. Patient reports the symptoms different from his prior asthma attack. Patient found to be Covid positive in the ED. Patient not vaccinated. 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 Acute hypoxic respiratory failure #. 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 Continue with dexamethasone 01/12. Supplemental oxygen, wean as tolerated. #. Heartburn Likely indigestion secondary to steroid We will put him on PPI for the duration of steroid Tums as needed Patient reports symptoms improvement. #. History of asthma #. History of allergy Stable, as needed albuterol, home Devi. #. DVT prophylaxis Enoxaparin subcutaneous Full code Disposition: Patient does not have health insurance per rehabilitation caseworker, it will be more expensive for the patient to go on home oxygen, hence hopefully will get him on room air prior to discharge. Admission and Anticipated Discharge Date Admission Date: February 12, 2021 Subjective Patient was lying in bed on his side, watching television, on 3 L nasal cannula oxygen, NAD. Patient reports improvement in his reflux symptoms. Continue with PPI. Patient reports a 10-minute episode of shortness of breath during the night, did not call nursing staff for this. He sat down on the bed and it resolved on its own per patient. Patient encouraged/requested to call for help during such episodes. Patient is eating and moving bowels okay. Patient denies any headache/dizziness/chest pain/palpitations/other review of symptoms. Physical Exam Physical Exam: GENERAL: Alert and oriented x3. NAD, on 3L. HEENT: No pallor, no icterus. Pupils equal, round and reactive to light. Oral mucosa moist. NECK: No JVD, no neck masses. HEART: S1 and S2 heard. Regular rate and rhythm. No murmur, no gallop. RESPIRATORY SYSTEM: Normal AP diameter. No accessory muscle use. No wheezing, no crackles. Decreased Breath sound ABDOMEN: Soft, bowel sounds present, nontender, no distention. CENTRAL NERVOUS SYSTEM: No facial droop. Speech is clear. Obeys simple commands. Moves extremities. EXTREMITIES: No edema, no erythema seen. Results & Data Results & Data ([facility]) Vital Signs (Past 12 Hours) Vital Signs Temp Pulse Pulse Resp BP Pulse Ox 02/14/21 11:41 37.1 C 54 L 18 112/69 95 02/14/21 09:13 36.9 C 58 L 14 91/54 L 92 02/14/21 07:27 37 L 02/14/21 07:25 70 02/14/21 03:17 36.9 C 49 L 18 108/47 L 93
[2021-02-15] MEDS: guaiFENesin 600 MG TABCR PO SCH ×2 (08:12→20:57)
[2021-02-15] MEDS: FEXOFENADINE HCL 180 MG TAB PO SCH (08:12)
[2021-02-15] MEDS: PANTOprazole 40 MG TAB PO SCH ×2 (08:12→20:57)
[2021-02-15] MEDS: ENOXAPARIN INJ 40 MG/0.4 ML SYR SQ SCH (08:13)
[2021-02-15] MEDS: dexAMETHasone 6 MG in SYRINGE 0 ML IV SCH (08:13)
--- NOTE | 2021-02-15 13:34 | Hospitalist Progress Note ---
Date of Service February 15, 2021 Assessment & Plan (1) Pneumonia due to 2019-nCoV: Plan: #. Acute hypoxic respiratory failure #. 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 Continue with dexamethasone 01/12. Supplemental oxygen, wean as tolerated. Has been requiring up to 3 L of oxygen to maintain saturation Cough suppressant as needed We will give 40-minute of Lasix today (2) Acute hypoxemic respiratory failure: Plan: Minimally worse today Plan: 45-year-old gentleman with past medical history of asthma and allergy presented to our ED 02/11 with complaint of few days worsening of dry cough associated with worsening shortness of breath but no chest pain. Patient reports the symptoms different from his prior asthma attack. Patient found to be Covid positive in the ED. Patient not vaccinated. 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 Is being managed for the following #. Heartburn Likely indigestion secondary to steroid We will put him on PPI for the duration of steroid Tums as needed Patient reports symptoms improvement. #. History of asthma #. History of allergy Stable, as needed albuterol, home Devi. #. DVT prophylaxis Enoxaparin subcutaneous Full code Disposition: Patient does not have health insurance per binder caser, it will be more expensive for the patient to go on home oxygen, hence hopefully will get him on room air prior to discharge. Admission and Anticipated Discharge Date Admission Date: February 12, 2021 Subjective 02/15/2021 The patient was seen and examined in medical telemetry unit and in the Covid room He has been feeling a little worse today Requiring up to 3 L of oxygen to maintain saturation Has cough and minimal shortness of breath at rest Review of Systems Review of Systems: All systems reviewed and are unremarkable except as noted below Respiratory: No respiratory distress at rest Physical Exam Physical Exam: Lying in bed with minimal shortness of breath but anxious Constitutional: well developed, well nourished and average body habitus; not ill appearing Eyes: PERRL, conjunctivae normal, anicteric sclerae ENMT: external ear and nose normal, oropharynx normal Neck: trachea midline, no thyromegaly Respiratory: + respiratory distress (Minimal distress at rest), + cough and + tachypneic Auscultation: + diminished lung sounds and + crackles (At the bases) Cardiovascular: Rate/Rhythm: regular rate and regular rhythm; not tachycardic Heart Sounds: normal S1 and normal S2; no murmur Extremities: no edema Gastrointestinal (Abdomen): Inspection/Auscultation: normal bowel sounds; abdomen not distended Percussion/Palpation: abdomen soft; abdomen nontender Musculoskeletal: No acute arthritis in any joint Neurologic: Alert, awake and oriented x3. No focal sensory and motor deficit appreciated Psychiatric: A+Ox3, euthymic affect Lymphatic: no cervical or axillary lymphadenopathy Results & Data Results & Data ([facility]) Vital Signs (Past 12 Hours) Vital Signs Temp Pulse Pulse Resp BP Pulse Ox 02/15/21 08:00 36.6 C 46 L 16 105/67 91 02/15/21 06:58 46 L 02/15/21 03:10 36.8 C 44 L 114/65 91 02/15/21 03:05 85 L Diagnostic Findings Current Inpatient Medications Acetaminophen (Acetaminophen 325 Mg Tab) 650 mg PO Q4H PRN PRN Reason: Pain or Fever Stop: 03/14/21 05:29 Calcium Carbonate (Calcium Carbonate 500 Mg Chewable Tab) 500 mg PO Q12H PRN PRN Reason: Indigestion Stop: 03/15/21 11:07 Last Admin: 02/13/21 12:16 Dose: 500 mg Documented by: Nystatin 30 ml/ Dexamethasone 3.75 mg/ Diphenhydramine HCl 300 mg/ Sucrose 45 ml/Microcrystalline Cellulose 45 ml/ BARCODE IDENTIFIER 1 ea 0 ml PO Q8H ZACH Stop: 03/14/21 16:59 Last Admin: 02/15/21 08:13 Dose: 5 ml Documented by: Enoxaparin Sodium (Enoxaparin Inj 40 Mg/0.4 Ml Syr) 40 mg SQ QAM ZACH Stop: 03/14/21 08:59 Last Admin: 02/15/21 08:13 Dose: 40 mg Documented by: Fexofenadine HCl (Fexofenadine Hcl 180 Mg Tab) 180 mg PO DAILY [facility] Stop: 03/14/21 13:29 Last Admin: 02/15/21 08:12 Dose: 180 mg Documented by: Guaifenesin (Guaifenesin 600 Mg Tabcr) 600 mg PO Q12 ZACH Stop: 03/14/21 08:59 Last Admin: 02/15/21 08:12 Dose: 600 mg Documented by: Promethazine HCl 12.5 mg/ (Sodium Chloride) 50.5 mls @ 202 mls/hr IV Q6H PRN PRN Reason: Nausea And Vomiting Stop: 03/14/21 05:29 Dexamethasone 6 mg/ Syringe 1.5 mls @ 1 mls/min IV DAILY ZACH Stop: 03/14/21 08:59 Last Admin: 02/15/21 08:13 Dose: 1 mls/min Documented by: Levalbuterol HCl (Levalbuterol Tartrate 15 Gm Hfa.Aer.Ad) 2 puffs INH Q4R PRN PRN Reason: sob/wheeze Stop: 03/14/21 05:29 Pantoprazole Sodium (Pantoprazole 40 Mg Tab) 40 mg PO BID ZACH Stop: 02/17/21 20:59 Last Admin: 02/15/21 08:12 Dose: 40 mg Documented by:
[2021-02-15] MEDS ORDERED: FUROSEMIDE 40 MG/4 ML VIAL IV ONE (13:45)
[2021-02-16] MEDS: guaiFENesin 600 MG TABCR PO SCH ×2 (07:59→20:04)
[2021-02-16] MEDS: dexAMETHasone 6 MG in SYRINGE 0 ML IV SCH (08:00)
[2021-02-16] MEDS: FEXOFENADINE HCL 180 MG TAB PO SCH (08:00)
[2021-02-16] MEDS: PANTOprazole 40 MG TAB PO SCH ×2 (08:00→20:04)
[2021-02-16] MEDS: ENOXAPARIN INJ 40 MG/0.4 ML SYR SQ SCH (08:01)
[2021-02-16 08:05] LABS: BUN Creatinine Ratio 19.7 (10-20); Calcium 8.7 mg/dl (8.5-10.1); Creatinine Clr Calc Pharmacy 101.5 ml/min; Est GFR (African American) 119.4 ml/min; Potassium 4.1 mmol/L (3.5-5.1)
--- NOTE | 2021-02-16 17:00 | Hospitalist Progress Note ---
Date of Service February 16, 2021 Assessment & Plan (1) Pneumonia due to 2019-nCoV: Plan: #. Acute hypoxic respiratory failure #. 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 Continue with dexamethasone 01/12. Supplemental oxygen, wean as tolerated. Has been requiring up to 3 L of oxygen to maintain saturation Cough suppressant as needed Feels a little better but not yet ready to be discharged (2) Acute hypoxemic respiratory failure: Plan: Minimally worse today We will get an x-ray Plan: 45-year-old gentleman with past medical history of asthma and allergy presented to our ED 02/11 with complaint of few days worsening of dry cough associated with worsening shortness of breath but no chest pain. Patient reports the symptoms different from his prior asthma attack. Patient found to be Covid positive in the ED. Patient not vaccinated. 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 Is being managed for the following #. Heartburn Likely indigestion secondary to steroid We will put him on PPI for the duration of steroid Tums as needed Patient reports symptoms improvement. #. History of asthma #. History of allergy Stable, as needed albuterol, home Devi. #. DVT prophylaxis Enoxaparin subcutaneous Full code Disposition: Patient does not have health insurance per manager animal, it will be more expensive for the patient to go on home oxygen, hence hopefully will get him on room air prior to discharge. Admission and Anticipated Discharge Date Admission Date: February 12, 2021 Subjective 02/15/2021 The patient was seen and examined in medical telemetry unit and in the Covid room He has been feeling a little worse today Requiring up to 3 L of oxygen to maintain saturation Has cough and minimal shortness of breath at rest 02/16/2021 The patient was seen and examined in medical telemetry unit and in the Covid room He has been feeling a little better but he still requires about 3 L of oxygen to maintain saturation Review of Systems Review of Systems: All systems reviewed and are unremarkable except as noted below Respiratory: No respiratory distress at rest Physical Exam Physical Exam: Lying in bed with minimal shortness of breath but anxious Constitutional: well developed, well nourished and average body habitus; not ill appearing Eyes: PERRL, conjunctivae normal, anicteric sclerae ENMT: external ear and nose normal, oropharynx normal Neck: trachea midline, no thyromegaly Respiratory: + respiratory distress (Minimal distress at rest), + cough and + tachypneic Auscultation: + diminished lung sounds and + crackles (At the bases) Cardiovascular: Rate/Rhythm: regular rate and regular rhythm; not tachycardic Heart Sounds: normal S1 and normal S2; no murmur Extremities: no edema Gastrointestinal (Abdomen): Inspection/Auscultation: normal bowel sounds; abdomen not distended Percussion/Palpation: abdomen soft; abdomen nontender Musculoskeletal: No acute arthritis in any joint Neurologic: Alert, awake and oriented x3 Psychiatric: A+Ox3, euthymic affect Lymphatic: no cervical or axillary lymphadenopathy Results & Data Results & Data ([facility]) Vital Signs (Past 12 Hours) Vital Signs Temp Pulse Pulse Resp BP Pulse Ox 02/16/21 16:12 65 02/16/21 16:00 36.9 C 65 18 105/70 97 02/16/21 12:08 36.6 C 94 H 17 106/65 94 02/16/21 08:00 36.7 C 52 L 94/54 L 95 02/16/21 07:38 49 L Laboratory Results [facility] 02/16/21 06:56 Sodium 138 Potassium 4.1 Chloride 99 Carbon Dioxide 33 H BUN 17 Creatinine 0.88 Glucose 93 Calcium 8.7 Medications Administered Current Inpatient Medications Acetaminophen (Acetaminophen 325 Mg Tab) 650 mg PO Q4H PRN PRN Reason: Pain or Fever Stop: 03/14/21 05:29 Calcium Carbonate (Calcium Carbonate 500 Mg Chewable Tab) 500 mg PO Q12H PRN PRN Reason: Indigestion Stop: 03/15/21 11:07 Last Admin: 02/13/21 12:16 Dose: 500 mg Documented by: Nystatin 30 ml/ Dexamethasone 3.75 mg/ Diphenhydramine HCl 300 mg/ Sucrose 45 ml/Microcrystalline Cellulose 45 ml/ BARCODE IDENTIFIER 1 ea 0 ml PO Q8H ZACH Stop: 03/14/21 16:59 Last Admin: 02/16/21 08:00 Dose: 5 ml Documented by: Enoxaparin Sodium (Enoxaparin Inj 40 Mg/0.4 Ml Syr) 40 mg SQ QAM [facility] Stop: 03/14/21 08:59 Last Admin: 02/16/21 08:01 Dose: 40 mg Documented by: Fexofenadine HCl (Fexofenadine Hcl 180 Mg Tab) 180 mg PO DAILY [facility] Stop: 03/14/21 13:29 Last Admin: 02/16/21 08:00 Dose: 180 mg Documented by: Guaifenesin (Guaifenesin 600 Mg Tabcr) 600 mg PO Q12 ZACH Stop: 03/14/21 08:59 Last Admin: 02/16/21 07:59 Dose: 600 mg Documented by: Promethazine HCl 12.5 mg/ (Sodium Chloride) 50.5 mls @ 202 mls/hr IV Q6H PRN PRN Reason: Nausea And Vomiting Stop: 03/14/21 05:29 Dexamethasone 6 mg/ Syringe 1.5 mls @ 1 mls/min IV DAILY [facility] Stop: 03/14/21 08:59 Last Admin: 02/16/21 08:00 Dose: 1 mls/min Documented by: Levalbuterol HCl (Levalbuterol Tartrate 15 Gm Hfa.Aer.Ad) 2 puffs INH Q4R PRN PRN Reason: sob/wheeze Stop: 03/14/21 05:29 Pantoprazole Sodium (Pantoprazole 40 Mg Tab) 40 mg PO BID [facility] Stop: 02/17/21 20:59 Last Admin: 02/16/21 08:00 Dose: 40 mg Documented by:
--- NOTE | 2021-02-16 19:21 | XRay Report ---
XR chest 1V portable CLINICAL HISTORY: Covid pneumonia. Shortness of breath COMPARISON STUDY: CTA chest from 02/12/2021 TECHNIQUE: 1 view of the chest FINDINGS: Single frontal view of the chest demonstrates the cardiomediastinal silhouette to be within normal li mits. Patchy interstitial and alveolar opacities are present bilaterally. The findings are most gautam cteristic of a viral type pneumonitis and Covid 19 pneumonia as demonstrated on the previous CTA ches t. There is no evidence for pleural effusion. There is no evidence for vascular congestion. There is no acute osseous pathology. IMPRESSION: Patchy interstitial and alveolar opacities are present bilaterally. The findings are most characteristic of a viral type pneumonitis and Covid 19 pneumonia as demonstrated on the previous CT A chest. ACT 112: Negative or not required by law. Electronically signed by: Feroz Graham M.D. 02/16/2021 7:20 PM
[2021-02-17] MEDS: dexAMETHasone 6 MG in SYRINGE 0 ML IV SCH (09:21)
[2021-02-17] MEDS: FEXOFENADINE HCL 180 MG TAB PO SCH (09:21)
[2021-02-17] MEDS: guaiFENesin 600 MG TABCR PO SCH (09:21)
[2021-02-17] MEDS: ENOXAPARIN INJ 40 MG/0.4 ML SYR SQ SCH (09:21)
[2021-02-17] MEDS: PANTOprazole 40 MG TAB PO SCH (09:22)
--- NOTE | 2021-02-17 15:41 | Hospitalist Progress Note ---
Date of Service February 17, 2021 Assessment & Plan (1) Pneumonia due to 2019-nCoV: Plan: #. Acute hypoxic respiratory failure #. 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 Continue with dexamethasone 01/12. Supplemental oxygen, wean as tolerated. Has been requiring up to 3 L of oxygen to maintain saturation Cough suppressant as needed Feels a lot better today and complains of only to have minimal cough but no shortness of breath Has had 2 steps O2 saturation test and he does not need any oxygen with ambulation or at rest He will be discharged home this afternoon (2) Acute hypoxemic respiratory failure: Plan: Minimally worse today We will get an x-ray Plan: 45-year-old gentleman with past medical history of asthma and allergy presented to our ED 02/11 with complaint of few days worsening of dry cough associated with worsening shortness of breath but no chest pain. Patient reports the symptoms different from his prior asthma attack. Patient found to be Covid positive in the ED. Patient not vaccinated. 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 Is being managed for the following #. Heartburn Likely indigestion secondary to steroid We will put him on PPI for the duration of steroid Tums as needed Patient reports symptoms improvement. #. History of asthma #. History of allergy Stable, as needed albuterol, home Devi. #. DVT prophylaxis Enoxaparin subcutaneous Full code Disposition: Patient does not have health insurance per patient case coordinator, it will be more expensive for the patient to go on home oxygen, hence hopefully will get him on room air prior to discharge. Passed to a step O2 saturation test Admission and Anticipated Discharge Date Admission Date: February 12, 2021 Subjective 02/15/2021 The patient was seen and examined in medical telemetry unit and in the Covid room He has been feeling a little worse today Requiring up to 3 L of oxygen to maintain saturation Has cough and minimal shortness of breath at rest 02/16/2021 The patient was seen and examined in medical telemetry unit and in the Covid room He has been feeling a little better but he still requires about 3 L of oxygen to maintain saturation 02/17/2021 The patient was seen and examined in medical telemetry unit and in the Covid room He has been feeling much better Has minimal cough but denies any shortness of breath at rest or with ambulation Review of Systems Review of Systems: All systems reviewed and are unremarkable except as noted below Respiratory: No respiratory distress at rest Physical Exam Physical Exam: Lying in bed with minimal shortness of breath but anxious Constitutional: well developed, well nourished and average body habitus; not ill appearing Eyes: PERRL, conjunctivae normal, anicteric sclerae ENMT: external ear and nose normal, oropharynx normal Neck: trachea midline, no thyromegaly Respiratory: + cough; no respiratory distress (Minimal distress at rest) and not tachypneic Auscultation: + diminished lung sounds; no crackles (At the bases) Cardiovascular: Rate/Rhythm: regular rate and regular rhythm; not tachycardic Heart Sounds: normal S1 and normal S2; no murmur Extremities: no edema Gastrointestinal (Abdomen): Inspection/Auscultation: normal bowel sounds; abdomen not distended Percussion/Palpation: abdomen soft; abdomen nontender Psychiatric: A+Ox3, euthymic affect Lymphatic: no cervical or axillary lymphadenopathy Results & Data Results & Data ([facility]) Vital Signs (Past 12 Hours) Vital Signs Temp Pulse Pulse Pulse Pulse Pulse Resp 02/17/21 15:25 97 H 71 70 02/17/21 08:18 36.7 C 51 L 16 02/17/21 06:17 48 L 02/17/21 05:05 36.9 C 61 18 Resp Resp Resp BP Pulse Ox Pulse Ox Pulse Ox 02/17/21 15:25 16 14 14 90 90 02/17/21 08:18 101/67 91 02/17/21 06:17 02/17/21 05:05 105/68 97 Pulse Ox 02/17/21 15:25 93 02/17/21 08:18 02/17/21 06:17 02/17/21 05:05 Medications Administered Current Inpatient Medications Acetaminophen (Acetaminophen 325 Mg Tab) 650 mg PO Q4H PRN PRN Reason: Pain or Fever Stop: 03/14/21 05:29 Calcium Carbonate (Calcium Carbonate 500 Mg Chewable Tab) 500 mg PO Q12H PRN PRN Reason: Indigestion Stop: 03/15/21 11:07 Last Admin: 02/13/21 12:16 Dose: 500 mg Documented by: Nystatin 30 ml/ Dexamethasone 3.75 mg/ Diphenhydramine HCl 300 mg/ Sucrose 45 ml/Microcrystalline Cellulose 45 ml/ BARCODE IDENTIFIER 1 ea 0 ml PO Q8H [facility] Stop: 03/14/21 16:59 Last Admin: 02/17/21 09:26 Dose: 5 ml Documented by: Enoxaparin Sodium (Enoxaparin Inj 40 Mg/0.4 Ml Syr) 40 mg SQ QAM [facility] Stop: 03/14/21 08:59 Last Admin: 02/17/21 09:21 Dose: 40 mg Documented by: Fexofenadine HCl (Fexofenadine Hcl 180 Mg Tab) 180 mg PO DAILY [facility] Stop: 03/14/21 13:29 Last Admin: 02/17/21 09:21 Dose: 180 mg Documented by: Guaifenesin (Guaifenesin 600 Mg Tabcr) 600 mg PO Q12 [facility] Stop: 03/14/21 08:59 Last Admin: 02/17/21 09:21 Dose: 600 mg Documented by: Promethazine HCl 12.5 mg/ (Sodium Chloride) 50.5 mls @ 202 mls/hr IV Q6H PRN PRN Reason: Nausea And Vomiting Stop: 03/14/21 05:29 Dexamethasone 6 mg/ Syringe 1.5 mls @ 1 mls/min IV DAILY [facility] Stop: 03/14/21 08:59 Last Admin: 02/17/21 09:21 Dose: 1 mls/min Documented by: Levalbuterol HCl (Levalbuterol Tartrate 15 Gm Hfa.Aer.Ad) 2 puffs INH Q4R PRN PRN Reason: sob/wheeze Stop: 03/14/21 05:29 Pantoprazole Sodium (Pantoprazole 40 Mg Tab) 40 mg PO BID [facility] Stop: 02/17/21 20:59 Last Admin: 02/17/21 09:22 Dose: 40 mg Documented by:
--- NOTE | 2021-02-18 09:23 | Discharge Summary ---
Date of Service February 18, 2021 Admission HPI Per Admitting Provider History obtained from patient and records. Medical history significant for bronchial asthma as per records. Last confinement 2009 under ENT service for left neck abscess status post drainage. Few days history of dry cough, worsening shortness of breath symptoms without chest pain. Symptoms different from asthma attack as per patient. Patient denies abdominal pain. Poor appetite at home. Possible COVID-19 contact at a [employer] he attended last week. Patient has not received COVID-19 vaccination. O2 sats upon arrival at the ER 80s on room air. Decadron, neb treatment given at the ER. Medical History as above Surgical History : Neck abscess drainage, hernia repair Family History : Asthma Personal/Social history : Non-smoker, occasional EtOH intake (last drink was 2 weeks ago as per patient), [employer] work Admission Exam Per Admitting Provider Physical Exam: GENERAL: Comfortable, no respiratory distress SKIN: Normal color, warm HEENT: [place] palpebral conjunctivae, no ptosis, dry buccal mucosa, nasal cannula in place NECK : Supple, no tenderness CHEST : Decreased breath sounds, no tenderness HEART : RRR, no obvious murmurs ABDOMEN: Some distention, nontender EXTREMITIES : No LE swelling/tenderness, no other conspicuous deformities noted NEUROLOGIC : Coherent, no facial asymmetry, no other gross focality Principal Diagnosis Pneumonia due to COVID-19 virus infection, acute hypoxic respiratory failure- improved, controlled asthma Discharge Exam Lying in bed with minimal shortness of breath but anxious Constitutional well developed, well nourished and average body habitus; not ill appearing Eyes PERRL, conjunctivae normal, anicteric sclerae ENMT external ear and nose normal, oropharynx normal Neck trachea midline, no thyromegaly Respiratory + cough; no respiratory distress (Minimal distress at rest) and not tachypneic Auscultation: + diminished lung sounds; no crackles (At the bases) Cardiovascular Rate/Rhythm: regular rate and regular rhythm; not tachycardic Heart Sounds: normal S1 and normal S2; no murmur Extremities: no edema Gastrointestinal (Abdomen) Inspection/Auscultation: normal bowel sounds; abdomen not distended Percussion/Palpation: abdomen soft; abdomen nontender Psychiatric A+Ox3, euthymic affect Lymphatic no cervical or axillary lymphadenopathy Discharge Data Allergies Allergy/AdvReac Type Severity Reaction Status Date / Time Tetanus Vaccines and Toxoid AdvReac Intermediate FELT LIKE Verified 02/11/21 23:07 WIPE LASH, NECK VERY STIFF house dust AdvReac Mild Congested Verified 02/12/21 07:16 pollen extracts AdvReac Mild Congested Verified 02/12/21 07:16 Consultations 02/12/21 01:54 ED Decision to Admit Stat Ordered Studies 02/11/21 22:29 CT angio chest PE protocol Urgent Hospital Course (1) Pneumonia due to 2019-nCoV: #. Acute hypoxic respiratory failure #. 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 Continue with dexamethasone 01/12. Supplemental oxygen, wean as tolerated. Has been requiring up to 3 L of oxygen to maintain saturation Cough suppressant as needed Feels a lot better today and complains of only to have minimal cough but no shortness of breath Has had 2 steps O2 saturation test and he does not need any oxygen with ambulation or at rest He will be discharged home this afternoon (2) Acute hypoxemic respiratory failure: Minimally worse today We will get an x-ray 45-year-old gentleman with past medical history of asthma and allergy presented to our ED 02/11 with complaint of few days worsening of dry cough associated with worsening shortness of breath but no chest pain. Patient reports the symptoms different from his prior asthma attack. Patient found to be Covid positive in the ED. Patient not vaccinated. 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 Is being managed for the following #. Heartburn Likely indigestion secondary to steroid We will put him on PPI for the duration of steroid Tums as needed Patient reports symptoms improvement. #. History of asthma #. History of allergy Stable, as needed albuterol, home Devi. #. DVT prophylaxis Enoxaparin subcutaneous Full code Disposition: Patient does not have health insurance per supportive employment case manager, it will be more expensive for the patient to go on home oxygen, hence hopefully will get him on room air prior to discharge. Passed to a step O2 saturation test Total Time Total Time Spent Total Time Spent (In Minutes): 35 minutes Discharge Plan Discharge Items Patient Disposition: Home - Self-Care Reason For Visit: RESP FAILURE, COVID Discharge Diagnosis: Pneumonia due to COVID-19 virus infection, acute hypoxic respiratory failure- improved, controlled asthma Condition on Discharge: Good Activity: Resume your previous activity Non-emergency contact: Primary Care Provider Call non-emergency contact if: you have any medication questions and your symptoms worsen Follow-up/Referrals: PCP,NO [Primary Care Provider] - (Please find and make an appointment with your primary care provider within 1 week.) Diet: Regular Addtl Attending Provider Instructions: Please take precautions to avoid fall Please follow the isolation precaution for the next 5 days as per CDC guideline below. Please finish the course of your steroid You can try [id number] cough medicine as needed Home Isolation COVID-19 Instructions The following information about Home Isolation is from the CDC Website: https://www.cdc.gov/coronavirus/2019-ncov/hcp/garpzakq-nqxbyhz-xiwlgm.html Stay home except to get medical care People who are mildly ill with COVID-19 are able to isolate at home during their illness. You should restrict activities outside your home, except for getting medical care. Do not go to work, school, or public areas. Avoid using public transportation, ride-sharing, or taxis. Separate yourself from other people and animals in your home People: As much as possible, you should stay in a specific room and away from other people in your home. Also, you should use a separate bathroom, if available. Animals: You should restrict contact with pets and other animals while you are sick with COVID-19, just like you would around other people. Although there have not been reports of pets or other animals becoming sick with COVID-19, it is still recommended that people sick with COVID-19 limit contact with animals until more information is known about the virus. When possible, have another member of your household care for your animals while you are sick. If you are sick with COVID-19, avoid contact with your pet, including petting, snuggling, being kissed or licked, and sharing food. If you must care for your pet or be around animals while you are sick, wash your hands before and after you interact with pets and wear a face mask. Call ahead before visiting your doctor If you have a medical appointment, call the healthcare provider and tell them that you have or may have COVID-19. This will help the healthcare providers office take steps to keep other people from getting infected or exposed. Wear a face mask You should wear a face mask when you are around other people (e.g., sharing a room or vehicle) or pets and before you enter a healthcare providers office. If you are not able to wear a face mask (for example, because it causes trouble breathing), then people who live with you should not stay in the same room with you, or they should wear a face mask if they enter your room. Cover your coughs and sneezes Cover your mouth and nose with a tissue when you cough or sneeze. Throw used tissues in a lined trash can. Immediately wash your hands with soap and water for at least 20 seconds or, if soap and water are not available, clean your hands with an alcohol-based hand soil engineer that contains at least 60% alcohol. Clean your hands often Wash your hands often with soap and water for at least 20 seconds, especially after blowing your nose, coughing, or sneezing; going to the bathroom; and before eating or preparing food. If soap and water are not readily available, use an alcohol-based hand soil engineer with at least 60% alcohol, covering all surfaces of your hands and rubbing them together until they feel dry. Soap and water are the best option if hands are visibly dirty. Avoid touching your eyes, nose, and mouth with unwashed hands. Avoid sharing personal household items You should not share dishes, drinking glasses, cups, eating utensils, towels, or bedding with other people or pets in your home. After using these items, they should be washed thoroughly with soap and water. Clean all high-touch surfaces everyday High touch surfaces include counters, tabletops, doorknobs, bathroom fixtures, toilets, phones, keyboards, tablets, and bedside tables. Also, clean any surfaces that may have blood, stool, or body fluids on them. Use a household cleaning spray or wipe, according to the label instructions. Labels contain instructions for safe and effective use of the cleaning product including precautions you should take when applying the product, such as wearing gloves and making sure you have good ventilation during use of the product. Monitor your symptoms Seek prompt medical attention if your illness is worsening (e.g., difficulty breathing).Beforeseeking care, call your healthcare provider and tell them that you have, or are being evaluated for, COVID-19. Put on a face mask before you enter the facility. These steps will help the healthcare providers office to keep other people in the office or waiting room from getting infected or exposed. Ask your healthcare provider to call the local or state health department. Persons who are placed under active monitoring or facilitated self- monitoring should follow instructions provided by their local health department or occupational health professionals, as appropriate. When working with your local health department check their available hours. If you have a medical emergency and need to call 911, notify the dispatch personnel that you have, or are being evaluated for COVID-19. If possible, put on a face mask before emergency medical services arrive. Discontinuing home isolation Patients with confirmed COVID-19 should remain under home isolation precautions until the risk of secondary transmission to others is thought to be low. The decision to discontinue home isolation precautions should be made on a [id number] basis, in consultation with healthcare providers and formerly [facility] and [facility] health departments. Pending Studies at Discharge: No Stand-Alone Forms: [facility] [employer], Smoking Cessation Medications and DC Order Prescriptions: New pantoprazole 40 mg Tablet,Delayed Release (Dr/Ec) 40 mg PO DAILY 30 Days Qty: 30 RF: 0 dexamethasone 6 mg tablet 6 mg PO DAILY Qty: 5 RF: 0 Continued Devi Allergy 1 cap PO DAILY RF: 0 Ventolin PRN (Reason: Other) RF: 0 Discharge Orders: Discharge Order (Routine); Ordered 02/17/21 Ordered By: Danielle Ray/Other Patient Handouts: High Blood Sugar (Hyperglycemia), 5 Steps for Eating Healthier, Exercise: Why Fitness Matters, Type 2 Diabetes Admission Data Admit Date/Time: 02/12/21 02:48 Attending Provider: Danielle Nice Admit Provider: Luis Antonio Darnell Primary Care Provider: PCP,NO Other Providers: Luis Antonio Darnell ; Sky Escobedo Other Interventions: Discharge Summary Assessment (RN) Last Done: 02/17/21 16:02
== END 2021-02-17 16:40 | disposition home or self-care (01) | DRG 177 ==
LOC: ED 22:07 → 2N 02-12 02:48 → SUATTDRO 02-12 02:48 → 2N 02-12 05:07